=== PATIENT | male | born 1965 | race Caucasian/White ===

== ENCOUNTER 2016-12-02 01:48 | Emergency (ER) | payer OTHER ==
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
--- NOTE | 2016-12-02 05:30 | ED ORDER SUMMARY ---
..... Patient: ESTEBAN OLVERA OrderSheet [facility] VisitID: [id number] [place] [address] 51y, M Registration Date/Time: 12/02/2016 ORDER SHEET Weight: 79.3 kg (stated) Allergies: No Known Drug Allergy GENERAL ORDERS: CT Head wo Cont Urgent (02:01 12/02/2016 Bruce Mckeon) (Ack 2:04 CHagerty ER Geospatial Developer) (2:13 CHagerty ER Geospatial Developer) CT Cervical Spine wo Cont Urgent (02:01 12/02/2016 Bruce Mckeon) (Ack 2:04 Victorinoerty ER Geospatial Developer) (2:13 Victorinoerty ER Geospatial Developer) CBC w Diff Urgent (03:29 12/02/2016 Bruce Mckeon) (Ack 3:32 Scarlett ER Geospatial Developer) (4:05 DDavis R.N.) CMP Urgent (03:29 12/02/2016 Bruce Mckeon) (Ack 3:32 Scarlett ER Geospatial Developer) (4:05 DDavis R.N.) CT Thorax/Abd/Pelvis w Cont (No) (5/0.8) Urgent (04:04 12/02/2016 Bruce Mckeon) (Ack 4:12 Victorinoerty ER Geospatial Developer) (4:38 RFay) MEDICATION ORDERS: Toihmco-Snoljh-Estkw Pertussis IM 0.5 mL (NOW, per protocol) (02:46 12/02/2016 Bruce Mckeon) (Ack 2:48 JQuivey R.N.) (2:53 JQuivey R.N.) Tylenol PO 1,000 mg (NOW) (04:47 12/02/2016 Bruce Mckeon) (4:50 DDavis R.N.) IV FLUIDS: IV Saline Lock (03:29 12/02/2016 Bruce Mckeon) (4:06 DDavis R.N.) ORDER SHEET NOTES: [Electronically signed by Tex Treadwell R.N. (06:27 12/02/2016)] [Electronically signed by Arturo Mcleod Dr. (06:42 12/02/2016)] [Electronically locked/signed by Tex Treadwell R.N. (06:27 12/02/2016)]
--- NOTE | 2016-12-02 05:30 | ED ORDER SUMMARY ---
..... Patient: ESTEBAN OLVERA OrderSheet [facility] VisitID: [id number] [place] [address] 51y, M Registration Date/Time: 12/02/2016 ORDER SHEET Weight: 79.3 kg (stated) Allergies: No Known Drug Allergy GENERAL ORDERS: CT Head wo Cont Urgent (02:01 12/02/2016 Bruce Mckeon) (Ack 2:04 CHagerty ER Resistance Welding Machine Operator) (2:13 CHagerty ER Resistance Welding Machine Operator) CT Cervical Spine wo Cont Urgent (02:01 12/02/2016 Bruce Mckeon) (Ack 2:04 Victorinoerty ER Resistance Welding Machine Operator) (2:13 Victorinoerty ER Resistance Welding Machine Operator) CBC w Diff Urgent (03:29 12/02/2016 Bruce Mckeon) (Ack 3:32 Scarlett ER Resistance Welding Machine Operator) (4:05 DDavis R.N.) CMP Urgent (03:29 12/02/2016 Bruce Mckeon) (Ack 3:32 Scarlett ER Resistance Welding Machine Operator) (4:05 DDavis R.N.) CT Thorax/Abd/Pelvis w Cont (No) (5/0.8) Urgent (04:04 12/02/2016 Bruce Mckeon) (Ack 4:12 Victorinoerty ER Resistance Welding Machine Operator) (4:38 RFay) MEDICATION ORDERS: Coortxp-Dekibr-Ufhcq Pertussis IM 0.5 mL (NOW, per protocol) (02:46 12/02/2016 Bruce Mckeon) (Ack 2:48 JQuivey R.N.) (2:53 JQuivey R.N.) Tylenol PO 1,000 mg (NOW) (04:47 12/02/2016 Bruce Mckeon) (4:50 DDavis R.N.) IV FLUIDS: IV Saline Lock (03:29 12/02/2016 Bruce Mckeon) (4:06 DDavis R.N.) ORDER SHEET NOTES: [Electronically signed by Tex Treadwell R.N. (06:27 12/02/2016)] [Electronically signed by Arturo Mcleod Dr. (06:42 12/02/2016)] [Electronically locked/signed by Tex Treadwell R.N. (06:27 12/02/2016)]
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
--- NOTE | 2016-12-02 06:42 | ED MED RECONCILIATION SUMMARY ---
Patient: ESTEBAN OLVERA Medication Reconciliation Report [facility] VisitID: [id number] [address] [place] [address] 51y, M Registration Date/Time: 12/02/2016 Weight: 79.3 kg Height/Length: 69 in. BMI: 25.8 ALLERGIES: No Known Drug Allergy The patient's Home Medications are listed below: Not obtained. The source(s) of the original Home Medication information: Not obtained. The following Medications were given to the patient in the Emergency Department: [id number] PERTUSSIS [IM] IM 0.5 mL, administered: 12/02/2016 2:51:00 AM Tylenol [PO] PO 1000 mg, administered: 12/02/2016 4:50:00 AM The following Medications were prescribed to the patient: None.
--- NOTE | 2016-12-02 06:42 | ED MAR SUMMARY ---
..... Medication Administration Record [facility] [address] [place] [address] Patient: ESTEBAN OLVERA Visit ID: [id number] 51y, M Weight: 79.3 kg Height/Length: 69 in BMI: 25.8 ALLERGIES: No Known Drug Allergy Given 02:51 12/02/2016 Abisai Isbell RGudeliaNGudelia Medication Administered: [id number] PERTUSSIS [IM], Dose: 0.5 mL IM. Medication Ordered: Uczsund-Ooosfg-Uyjen Pertussis IM 0.5 mL (NOW, per protocol). Given 04:50 12/02/2016 Tex Treadwell, RGudeliaN. Medication Administered: TYLENOL [PO] (ACETAMINOPHEN), Dose: 1000 mg Tablets PO. Medication Ordered: Tylenol PO 1,000 mg (NOW).
--- NOTE | 2016-12-02 06:42 | ED MAR SUMMARY ---
..... Medication Administration Record [facility] [address] [place] [address] Patient: ESTEBAN OLVERA Visit ID: [id number] 51y, M Weight: 79.3 kg Height/Length: 69 in BMI: 25.8 ALLERGIES: No Known Drug Allergy Given 02:51 12/02/2016 Abisai Isbell RGudeliaNGudelia Medication Administered: [id number] PERTUSSIS [IM], Dose: 0.5 mL IM. Medication Ordered: Sszgxlb-Vmemxs-Vzuyr Pertussis IM 0.5 mL (NOW, per protocol). Given 04:50 12/02/2016 Tex Treadwell, RGudeliaN. Medication Administered: TYLENOL [PO] (ACETAMINOPHEN), Dose: 1000 mg Tablets PO. Medication Ordered: Tylenol PO 1,000 mg (NOW).
--- NOTE | 2016-12-02 06:42 | ED MED RECONCILIATION SUMMARY ---
Patient: ESTEBAN OLVERA Medication Reconciliation Report [facility] VisitID: [id number] [address] [place] [address] 51y, M Registration Date/Time: 12/02/2016 Weight: 79.3 kg Height/Length: 69 in. BMI: 25.8 ALLERGIES: No Known Drug Allergy The patient's Home Medications are listed below: Not obtained. The source(s) of the original Home Medication information: Not obtained. The following Medications were given to the patient in the Emergency Department: [id number] PERTUSSIS [IM] IM 0.5 mL, administered: 12/02/2016 2:51:00 AM Tylenol [PO] PO 1000 mg, administered: 12/02/2016 4:50:00 AM The following Medications were prescribed to the patient: None.
--- NOTE | 2016-12-02 08:59 | DIAGNOSTIC IMAGING REPORT ---
PROCEDURE: CT THORAX ABD PELVIS W/CONT INDICATION: TRAUMA/INJURY TECHNIQUE: 145 ml of Isovue 300 injected intravenously and axial images were obtained of the entire thorax, abdomen, and pelvis with sagittal and coronal reformations. Preliminary report provided by Floresita Reyes MD ([facility] [[email or web address]]). COMPARISON: None. FINDINGS: THORAX: Mild parenchymal scarring. Lungs are otherwise clear. Heart is of normal size. Moderate mucosal thickening of the esophagus. Mediastinum is normal. There are old compression fractures of the thoracic spine (T6 40%, T11 80%). ABDOMEN: There is a 3.2 cm low density area posterior to the right kidney which most likely represents a ruptured exophytic cyst. Right kidney is otherwise normal. Left kidney is normal (2 cm left renal cyst (. Moderate calcified atheromatous changes of the aorta. Gallbladder, liver, spleen, pancreas, and aorta are normal. Bowel pattern is within normal limits. PELVIS: Mild sigmoid diverticulosis. Pelvic structures are normal. IMPRESSION: 1. Moderate mucosal thickening of the esophagus suggests reflux esophagitis. 2. Old compression fractures of the T6 (40%) and T11 (80%) vertebra. 3. Otherwise negative CT thorax. 4. There is a ruptured exophytic cyst posterior to the right kidney. No evidence of renal injury. 5. Otherwise negative CT abdomen. 6. Mild sigmoid diverticulosis. 7. Otherwise negative CT pelvis. 8. Preliminary report was provided to Dr. Arturo Mcleod. All CT scans at this facility use dose modulation, iterative reconstruction, and/or weight-based dosing when appropriate to reduce radiation dose to as low as reasonably achievable.
== END 2016-12-02 06:28 ==
LOC: ED SRH 01:48
DX: S01.81XA Laceration without foreign body of other part of head, initial encounter (principal); S80.02XA Contusion of left knee, initial encounter; S80.01XA Contusion of right knee, initial encounter; S20.219A Contusion of unspecified front wall of thorax, initial encounter; V47.0XXA Car driver injured in collision with fixed or stationary object in nontraffic accident, initial encounter; Y93.9 Activity, unspecified; Y92.9 Unspecified place or not applicable; Y99.9 Unspecified external cause status; I10 Essential (primary) hypertension
CPT/HCPCS: 90100; 95059